=== PATIENT | female | born 1960 | race Caucasian/White ===

== ENCOUNTER 2019-10-27 09:20 | Outpatient (CLI) | payer OTHER, SELFPAY ==
[2019-10-27 10:06] LABS: Basophils Absolute Auto 0.1 K/mm3 (0.0-0.1); Basophils Percent Auto 3.1 % (0.2-1.2); Eosinophils Absolute Auto 0.3 K/mm3 (0-0.3); Eosinophils Percent Auto 7.7 % (0-4.4); Hematocrit 42.1 % (37.0-47.0); Hemoglobin 13.6 g/dL (12.0-15.0); Immature Granulocyte Absolute 0.01 K/mm3 (0.00-0.031); Immature Granulocyte Percent A 0.2 % (0-0.5); Lymphocytes Absolute Auto 1.78 K/mm3 (0.9-3.2); Lymphocytes Percent Auto 41.8 % (18.3-44.2); Mean Corpuscular HGB Conc 32.3 g/dl (32-36); Mean Corpuscular Hemoglobin 29.4 pg (26-34); Mean Corpuscular Volume 91.1 fl (80-100); Mean Platelet Volume 10.1 fl (7.4-10.4); Monocytes Absolute Auto 0.4 K/mm3 (0.1-0.6); Monocytes Percent Auto 9.2 % (2.6-8.5); Neutrophils Absolute Auto 1.6 K/mm3 (1.3-6.7); Platelet Count Result 194 k/mm3 (150-375); Red Blood Count 4.62 M/mm3 (4.2-5.4); White Blood Count 4.3 K/mm3 (4.5-10.0)
[2019-10-27 10:25] LABS: Alanine Aminotransferase 13 U/L (4-35); Albumin Level 4.2 g/dL (3.5-5.1); Alkaline Phosphatase 59 U/L (38-126); Anion Gap 5 mmol/L (8-16); Aspartate Amino Transferase 29 U/L (14-36); Bilirubin,Total 1.1 mg/dL (0.2-1.3); Blood Urea Nitrogen 16 mg/dL (7-17); Calcium 9.1 mg/dL (8.4-10.2); Carbon Dioxide 27 mmol/L (22-30); Chloride 106 mmol/L (98-107); Cholesterol 179 mg/dL (0-200); Estimated Glomerular Filt Rate > 60; Glucose 94 mg/dL (65-105); HDL Direct 61 mg/dL; Potassium 3.9 mmol/L (3.4-5.0); Sodium 138 mmol/L (137-145); Triglycerides 49 mg/dL (<150)
[2019-10-27 10:38] LABS: LDL Cholesterol Direct 98 mg/dL
== END 2019-10-27 09:21 | disposition home or self-care (01) ==
LOC: ANHLAB 09:22
PROVIDERS: PCP Nurse Practitioner; Visit Provider Nurse Practitioner
DX: R53.83 Other fatigue (principal); E78.5 Hyperlipidemia, unspecified
CPT/HCPCS: 36415; 80053; 80061; 84443; 85025

== ENCOUNTER 2019-11-15 13:41 | Outpatient (CLI) | payer OTHER, SELFPAY ==
--- NOTE | ~2019-11-15 | MM_ITS ---
EXAMINATION: MM screening belen BI w alyssa HISTORY: Screening mammogram TECHNIQUE: Craniocaudal and mediolateral oblique 3-D tomosynthesis images were obtained and synthetic 2-D images were generated. CAD analysis was submitted and interpreted. COMPARISON: 09/16/2018, 07/01/2017 bilateral digital screening mammogram examinations BREAST PARENCHYMAL COMPOSITION: The breasts are heterogeneously dense, which may obscure small masses . FINDINGS: Stable mild fibroglandular asymmetry. There is no evidence of suspicious mass, calcificatio n, or architectural distortion to suggest malignancy in either breast. There has been no suspicious i nterval change. IMPRESSION: 1. No mammographic evidence of malignancy. 2. Recommend routine screening mammography in one year. BI-RADS Category 2: Benign finding(s). Reviewed, dictated and finalized at location A.
== END 2019-11-15 13:42 | disposition home or self-care (01) ==
LOC: ANHIMG 13:44
PROVIDERS: PCP Family Medicine; Visit Provider Obstetrics & Gynecology
DX: Z12.31 Encounter for screening mammogram for malignant neoplasm of breast (principal)
CPT/HCPCS: 77063; 77067

== ENCOUNTER 2019-11-21 09:38 | Outpatient (CLI) | payer OTHER, SELFPAY ==
--- NOTE | 2019-11-21 09:45 | EST_ITS ---
Patient Info Name: Maria Teresa Hector Age: 59 years : 1960 Gender: Female Ht: 67 in Wt: 130 lbs BSA: 1.67 m2 HR: 75 bpm BP: 139 / 76 mmHg Heart Rhythm: Sinus Rhythm Technical Quality: Good Exam Date: 11/21/2019 10:07 AM Exam Location: [facility] Pulmonary Patient Status: Outpatient Admit Date: 11/21/2019 Staff Ordering Physician: Nora Pozo NP Director Of Pharmacy: Zee Mei RDCS Attending Provider: TOBIAS ROUSSEAU DO Referring Physician: Sánchez THOMASON; Exam Type: CA stress echo Study Info Indications R07.9 - Chest pain, unspecified Treadmill exercise stress echocardiogram is performed. Summary 1. 1. Negative Eduardo exercise stress test for ischemic ST changes by ECG criteria. 2. 2. Mildly reduced functional capacity, achieving 7 METs of workload. 3. 3. Appropriate HR response to exercise. 4. 4. Appropriate HR recovery at 1 minute post exercise. 5. 5. Negative stress echocardiogram for ischemia by wall motion analysis. 6. 6. Patient informed of the above results. Stress Echo Findings Left Ventricle Appropriate increase in LV endocardial thickening with systole. Appropriate augmentation of contractility with systole. No wall motion abnormality. Left Ventricle Normal LV systolic function, no wall motion abnormality. Protocol: Eduardo Stress ECG Details Stage: REST Duration (min): 7 min : 54 sec Speed (mph): 0.0 Grade (%): 0 HR (bpm): 60 SBP (mmHg): 139 DBP (mmHg): 76 METS: --- Stage: REST Duration (min): 23 min : 43 sec Speed (mph): 0.0 Grade (%): 0 HR (bpm): 83 SBP (mmHg): 139 DBP (mmHg): 76 METS: --- Stage: STAGE 1 Duration (min): 1 min : 0 sec Speed (mph): 1.7 Grade (%): 10 HR (bpm): 90 SBP (mmHg): 139 DBP (mmHg): 76 METS: --- Stage: STAGE 1 Duration (min): 2 min : 0 sec Speed (mph): 1.7 Grade (%): 10 HR (bpm): 112 SBP (mmHg): 139 DBP (mmHg): 76 METS: --- Stage: STAGE 1 Duration (min): 3 min : 0 sec Speed (mph): 1.7 Grade (%): 10 HR (bpm): 123 SBP (mmHg): 177 DBP (mmHg): 93 METS: --- Stage: STAGE 2 Duration (min): 1 min : 0 sec Speed (mph): 2.5 Grade (%): 12 HR (bpm): 140 SBP (mmHg): 177 DBP (mmHg): 93 METS: --- Stage: STAGE 2 Duration (min): 2 min : 0 sec Speed (mph): 2.5 Grade (%): 12 HR (bpm): 145 SBP (mmHg): 180 DBP (mmHg): 98 METS: --- Stage: STAGE 2 Duration (min): 3 min : 0 sec Speed (mph): 2.5 Grade (%): 12 HR (bpm): 154 SBP (mmHg): 180 DBP (mmHg): 98 METS: --- Stage: STAGE 3 Duration (min): 0 min : 14 sec Speed (mph): 0.0 Grade (%): 0 HR (bpm): 151 SBP (mmHg): 180 DBP (mmHg): 98 METS: --- Stage: RECOVERY Duration (min): 0 min : 46 sec Speed (mph): 0.0 Grade (%): 0 HR (bpm): 130 SBP (mmHg): 160 DBP (mmHg): 87 METS: --- Stage: RECOVERY Duration (min): 1 min : 46 sec Speed (mph):
== END 2019-11-21 09:39 | disposition home or self-care (01) ==
LOC: ANHCARD 09:39
PROVIDERS: PCP Nurse Practitioner; Visit Provider Nurse Practitioner
DX: R07.89 Other chest pain (principal)
CPT/HCPCS: 93351

== ENCOUNTER 2019-12-29 13:38 | Outpatient (CLI) | payer OTHER, SELFPAY ==
--- NOTE | ~2019-12-29 | DEXA_ITS ---
Bone Density Report Name: Maria Teresa Hector Age: 59 Sex: Female Ethnicity: White Date of : 1960 Indication: postmenopausal; prior fracture; Referring Provider: Nora Pozo Study: Bone densitometry was performed. Exam Date: December 29, 2019 Accession number: [id number] Bone Density: Region BMD T-score Z-score Classification AP Spine (L1-L4) 0.766 -2.6 -1.1 Osteoporosis Femoral Neck (Left) 0.613 -2.1 -0.8 Osteopenia Total Hip (Left) 0.788 -1.3 -0.2 Osteopenia Total Hip Bilateral Avg 0.792 -1.3 -0.2 Osteopenia Femoral Neck (Right) 0.619 -2.1 -0.7 Osteopenia Total Hip (Right) 0.794 -1.2 -0.2 Osteopenia World Health Organization criteria for BMD impression classify patients as: Normal (T-score at or above -1.0), Osteopenia (T-score between -1.0 and -2.5), or Osteoporosis (T-score at or below -2.5). 10-year Fracture Risk: FRAX not reported because: Some T-score for Spine Total or Hip Total or Femoral Neck at or below -2.5 Clinical Information Provided by Patient: Has had a low trauma fracture Has used the following medications: HRT (i.e. estrogen/hormone therapy), Vitamin D Patient maximum height was 67 Menopause Age: 44 Drinks caffeinated beverages Onset of menses at age 15 Number of children 3 Impression: The patient has established osteoporosis, based on the Total Spine T-score and the existence of a prior fracture. The patient has risk factors, including: previous fracture. Discussion: HIGH RISK OF FRACTURE. BONE DENSITY IS UNDESIRABLY LOW AT ONE OR MORE SKELETAL SITES, CONSISTENT WITH POSTMENOPAUSAL OSTEOPOROSIS. This patient's lowest T-score, in a patient who has previously fractured, meets the World Health Organization's (WHO) criteria for severe osteoporosis. In untreated patients, the risk of osteoporotic fracture increases approximately two-fold for each 1.0 SD decrease in T-score. Low bone density is not the only risk factor for fracture; also consider factors such as patient's age, frailty or poor health, risk of falling, risk of injury, previous osteoporotic fracture, family history of osteoporosis, cigarette smoking, low body weight, etc. Not everyone with low bone mineral density has osteoporosis; osteomalacia and other metabolic bone disorders should also be considered. Patients who have osteoporosis should be evaluated for specific diseases and conditions (secondary causes) that may cause or contribute to bone loss. The [place] [employer] Endocrinologists (AACE) and National Osteoporosis Foundation (NOF) recommend pharmacologic intervention for all postmenopausal women whose T-score is in this range. The patient should follow a healthful lifestyle (good nutrition with adequate calcium and vitamin D, and appropriate weight-bearing exercise). Follow-Up: Consider a repeat BMD and Vertebral Fr
== END 2019-12-29 13:39 | disposition home or self-care (01) ==
LOC: ANHIMG 13:40
PROVIDERS: PCP Family Medicine; Visit Provider Nurse Practitioner
DX: Z78.0 Asymptomatic menopausal state (principal); M81.0 Age-related osteoporosis without current pathological fracture; M85.89 Other specified disorders of bone density and structure, multiple sites
CPT/HCPCS: 77080

== ENCOUNTER 2020-01-28 01:16 | Outpatient (CLI) | payer OTHER, SELFPAY ==
[2020-01-28 18:31] LABS: SARS-CoV-2 RNA PCR Negative
== END 2020-01-28 01:17 | disposition home or self-care (01) ==
LOC: ANHCOVIDDT 01:16
PROVIDERS: PCP Family Medicine; Visit Provider Internal Medicine Gastroenterology
DX: Z01.812 Encounter for preprocedural laboratory examination (principal); Z20.828 Contact with and (suspected) exposure to other viral communicable diseases
CPT/HCPCS: 87635; C9803; U0003

== ENCOUNTER 2020-01-31 00:57 | Day surgery (SDC) | payer OTHER, SELFPAY ==
[2020-01-24 10:24] VITALS: BMI 20.3
[2020-01-31 11:10] VITALS: BP 134/82; PULSE 93; RESP 20; TEMP 36.6; O2SAT 98; BMI 20.2
[2020-01-31] MEDS: LACTATED RINGERS 1,000 ML 150 ML IV CONT (11:21)
--- NOTE | 2020-01-31 11:32 | WPDANESEPPF ---
Anes - Initial Pre Proc Eval Procedure: Operation Date: 01/31/20 12:30 Proposed Procedures p Screening Colonoscopy - Sabino Hughes MD Date/Time: 01/31/20 11:32 Surgeon: Sabino Hughes MD Pre Op Diagnosis: Neoplasm Screening Patient Data Age: 59 Gender: F Height: 5 ft 7 in Weight: 58.6 kg Last Vital Signs Temp 97.9 F 01/31/20 11:10 Pulse 93 01/31/20 11:10 Resp 20 01/31/20 11:10 BP 134/82 01/31/20 11:10 Pulse Ox 98 01/31/20 11:10 Allergies Allergy/AdvReac Type Severity Reaction Status Date / Time Penicillins Allergy Unknown Hives Verified 01/31/20 11:07 Home Medications Medication Instructions Recorded Confirmed Type alprazolam 1 mg tablet 1 mg PO DAILY 01/03/19 01/24/20 History estradiol-norethindrone acet 1 1 tablet PO DAILY 01/03/19 01/24/20 History mg-0.5 mg tablet simvastatin 20 mg tablet 20 mg PO DAILY #90 tablet 01/03/19 01/24/20 Rx peg 3350 240 gram-electrolytes 240 ml PO Q10M #4000 ml 12/30/19 Rx 22.72 gram-6.72 g-5.84 g powdr for soln alendronate 70 mg tablet 70 mg PO WEEKLY #16 tablet 01/03/20 01/24/20 Rx cholecalciferol (vitamin D3) 25 mcg PO DAILY 01/24/20 01/24/20 History [Vitamin D3] vit C-E-zinc [id number] 1 tablet PO DAILY 01/24/20 01/24/20 History [[facility]] Patient hx anesthesia problems: none Family hx anesthesia problems: none PMFSH Past Medical History Medical History (Updated 11/24/19 @ 15:17 by Nora Pozo NP) Anxiety disorder in conditions classified elsewhere (~2016) Hyperlipidemia LDL goal <100 (~2016) Unilateral primary osteoarthritis, right knee (~09/2016) Venous insufficiency (chronic) (peripheral) (~2016) Family History Family History Father Acute myocardial infarction, Onset Age: 68 Family history of type 2 diabetes mellitus Mother Patient's mother is in good health Social History Social History Smoking status: Never smoker Second hand tobacco smoke exposure: No Alcohol intake: never Substance use: never Substance use type: does not use Living arrangements: with family Spiritual care concerns: No Anes - Eval Final PreProcedure Day of Procedure 01/31/20 11:32 Patient weight: normal Heart: regular rate and rhythm Lungs: clear to auscultation Airway: Mallampati scale class II Neurological: alert and oriented Last oral intake: >/= 8 hours ASA classification: II Emergent: no Anesthetic plan: proceed Anesthesia type and monitoring: general GIVS and standard monitoring Informed Consent: The patient's anesthetic plan and its attendant risks and benefits were discussed with the patient/family/POA. Questions were solicited and answers provided to the satisfaction of the patient/family/POA.
--- NOTE | 2020-01-31 12:30 | SUR.OPER ---
CECUM REACHED AT 1229
[2020-01-31 12:42] VITALS: BP 106/60; PULSE 83; RESP 17; O2SAT 100
--- NOTE | 2020-01-31 12:43 | PM.HPGS ---
History of Present Illness History of Present Illness Consent: Risks, benefits, and alternatives have been discussed and questions answered. Patient agrees to proceed with procedure. Chief complaint: Neoplasm Screening Narrative: Maria Teresa Hector is a 59 year old female here for first colonoscopy, + cologuard Review of Systems Constitutional: Constitutional: Denies headache(s) and Denies weakness Eyes: Eyes: Denies blurry vision ENT: Reports Normal hearing present, Denies headache(s) and Denies neck pain Cardiovascular: Cardiovascular: Denies chest pain and Denies dyspnea Respiratory: Respiratory: Denies dyspnea Gastrointestinal: Gastrointestinal: Reports no additional gastrointestinal complaints Genitourinary: Genitourinary: Denies dysuria Musculoskeletal: Musculoskeletal: Denies neck pain Integumentary/Breasts: Skin/Breast: Denies dry skin Neurologic: Reports Normal hearing present, Denies headache(s) and Denies weakness Psychiatric: Psychiatric: Denies anxiety Endocrine: Endocrine: Denies change in body appearance Hematologic/Lymphatic: Hematologic/Lymphatic: Denies easy bleeding Allergic/Immunologic: Allergic/Immunologic: Denies urticaria PMFSH Past Medical History Medical History (Updated 01/31/20 @ 12:44 by Sabino Hughes MD) Anxiety disorder in conditions classified elsewhere (~2017) Hyperlipidemia LDL goal <100 (~2017) Positive colorectal cancer screening using Cologuard test Unilateral primary osteoarthritis, right knee (~09/2016) Venous insufficiency (chronic) (peripheral) (~2017) Family History Family History Father Acute myocardial infarction, Onset Age: 68 Family history of type 2 diabetes mellitus Mother Patient's mother is in good health Social History Social History Smoking status: Never smoker Second hand tobacco smoke exposure: No Alcohol intake: never Substance use: never Substance use type: does not use Living arrangements: with family Spiritual care concerns: No Meds Home Medications and Allergies Home Medications Medication Instructions Recorded Confirmed Type alprazolam 1 mg tablet 1 mg PO DAILY 01/03/19 01/24/20 History estradiol-norethindrone acet 1 1 tablet PO DAILY 01/03/19 01/24/20 History mg-0.5 mg tablet simvastatin 20 mg tablet 20 mg PO DAILY #90 tablet 01/03/19 01/24/20 Rx peg 3350 240 gram-electrolytes 240 ml PO Q10M #4000 ml 12/30/19 Rx 22.72 gram-6.72 g-5.84 g powdr for soln alendronate 70 mg tablet 70 mg PO WEEKLY #16 tablet 01/03/20 01/24/20 Rx cholecalciferol (vitamin D3) 25 mcg PO DAILY 01/24/20 01/24/20 History [Vitamin D3] vit C-E-zinc [id number] 1 tablet PO DAILY 01/24/20 01/24/20 [facility] Allergies Allergy/AdvReac Type Severity Reaction Status Date / Time Penicillins Allergy Unknown Hives Verified 01/31/20 11:07 Vital Signs Vital Signs - 24 hr 01/31/20 11:10 Temperature 97.9 F Pulse Rate 93 Respiratory Rate 20 Blood Pressure 134/82 Pulse Oximetry 98 Exam Const: General: comfortable and no acute distress HENMT: General nose exam: Normal nares present Eyes: General: appearance normal, both eyes and all related structures Neck: Neck: no JVD Resp: Auscultation: clear to auscultation bilaterally Cardio: Rate: regular rate Rhythm: regular rhythm GI: Inspection: non-distended GI Palp: Yes Soft to palpation Skin: General skin exam: normal color Neuro: General: gait normal Speech: normal speech Extrem: General: normal to inspection Psych: Mental Status: mental status grossly normal Assessment and Plan Assessment and plan (1) Positive colorectal cancer screening using Cologuard test: Code(s): R19.5 - Other fecal abnormalities Status: Acute Assessment and Plan: will proceed with colonoscopy
--- NOTE | 2020-01-31 12:50 | PM.PROC ---
Procedure Note - Detailed Date of procedure: 01/31/20 Pre-op diagnosis: Neoplasm Screening Surgeon: Sabino Hughes MD procedure: colonoscopy indication: first colonoscopy, + cologuard Informed consent was obtained with the risks, benefits, and alternatives to sedation and procedure explained, including but not limited to: infection, bleeding, aspiration, perforation, adverse medication reaction, missed diagnosis, and missed lesions. The patient verbalized understanding and signed the informed consent form to proceed with the sedation and the procedure.First colonoscopy.No contraindications were noted on the physical exam. Immediately prior to sedation for endoscopy, the patient's ASA Classification was Class II: mild systemic disease. Patient re-examined and no interval changes noted from preoperative history and physical. After the patient was rolled into the procedure room, two methods of identification were used to identify the patient and the procedure to be performed prior to the procedure.Anesthesia was administered by anesthesia service.The quality of the prep was excellent. Once the patient was comfortable a digital rectal exam was performed, and no masses were palpated. The patient was placed in the left lateral decubitus position.The instrument was inserted into the rectum and then advanced to the cecum.A retroflexion was performed in the rectum. The withdrawal time from the cecum was 7 minutes. The patient tolerated the procedure well. The patient's heart rate was normal. The oxygen saturation and skin color were normal. The patient will be recovered per established procedures and protocols upon discharge from the endoscopy suite. Findings: normal colon mucosa, no colitis, no polyps. One small diverticula in transverse colon, no inflammation. Found small non-bleeding internal hemorrhoids. Recommendations: ok to go home after recovery ok to resume meds and diet next colonoscopy in 10 years (earlier if any symptoms)
[2020-01-31 12:52] VITALS: BP 110/66; PULSE 76; RESP 18; O2SAT 100
[2020-01-31 13:02] VITALS: BP 112/76; PULSE 73; RESP 17; O2SAT 100
== END 2020-01-31 13:10 | disposition home or self-care (01) ==
PROVIDERS: PCP Family Medicine; Visit Provider Internal Medicine Gastroenterology
PROC: 0DJD8ZZ Inspection of Lower Intestinal Tract, Via Natural or Artificial Opening Endoscopic (ICD-10-PCS; CPT 45378; principal; 2020-01-31 12:30)
DX: Z12.11 Encounter for screening for malignant neoplasm of colon (principal); R19.5 Other fecal abnormalities; K57.30 Diverticulosis of large intestine without perforation or abscess without bleeding; K64.8 Other hemorrhoids; E78.5 Hyperlipidemia, unspecified; I87.2 Venous insufficiency (chronic) (peripheral); F41.1 Generalized anxiety disorder
CPT/HCPCS: 45378; J2704; J7120

== ENCOUNTER 2021-05-03 11:40 | Outpatient (CLI) | payer OTHER, SELFPAY ==
--- NOTE | ~2021-05-03 | MMUS_ITS ---
EXAMINATION: MM diagnostic belen BI w alyssa, US breast BI limited HISTORY: Palpable lumps in the upper outer quadrant of the right breast in the 6:00 location of the l eft breast TECHNIQUE: Craniocaudal, mediolateral, and mediolateral oblique 3-D tomosynthesis images of the breas ts were performed and synthetic 2-D images were generated. CAD analysis was submitted and interpreted . High resolution limited bilateral breast ultrasound was performed. COMPARISON: 11/15/2019, 09/16/2018, 07/01/2017 BREAST PARENCHYMAL COMPOSITION: The breasts are heterogeneously dense, which may obscure small masses . FINDINGS: MAMMOGRAPHIC FINDINGS: Right breast: There is subtle architectural distortion with a possible mass at the 11:00 location in the middle third of the upper-outer quadrant of the breast 3.8 cm from the nipple. Left breast: No mammographic correlate is identified for the reported palpable abnormality of concern . There has been no suspicious interval change. ULTRASOUND: Right breast: There is an oval, complex cystic and solid, not parallel mass at the 11:00 location 1 c m from the nipple with no posterior features or internal vascularity. Left breast: No sonographic correlate is identified for the reported nipple abnormalities concern in the left breast. IMPRESSION: 1. Indeterminate right breast mass. Ultrasound-guided biopsy is recommended. 2. Clinical follow-up is recommended for the reported palpable abnormality of concern in the left amy ast. BI-RADS category 4, suspicious findings. Reviewed, dictated and finalized at location A. [facility] IMPRESSION: 1. Indeterminate right breast mass. Ultrasound-guided biopsy is recommended. 2. Clinical follow-up is recommended for the reported palpable abnormality of c oncern in the left breast. BI-RADS category 4, suspicious findings.
== END 2021-05-03 11:41 | disposition home or self-care (01) ==
LOC: ANHIMG 11:41
PROVIDERS: PCP Family Medicine; Visit Provider Obstetrics & Gynecology
DX: R92.8 Other abnormal and inconclusive findings on diagnostic imaging of breast (principal)
CPT/HCPCS: 76642; 77062; 77066; G0279

== ENCOUNTER 2022-05-12 07:52 | Outpatient (CLI) | payer OTHER, SELFPAY ==
--- NOTE | ~2022-05-12 | DEXA_ITS ---
Bone Density Report Name: TILA PRINCE Age: 61 Sex: Female Ethnicity: White Date of : 1960 Indication: postmenopausal osteoporosis; monitoring treatment; height loss; Referring Provider: EUNICE TREVIÑO Study: Bone densitometry was performed. Exam Date: May 12, 2022 Accession number: [id number] Bone Density: Region BMD T-score Z-score Classification AP Spine(L1-L4) 0.878 -1.5 0.1 Osteopenia Femoral Neck (Left) 0.682 -1.5 -0.1 Osteopenia Total Hip (Left) 0.778 -1.3 -0.2 Osteopenia Femoral Neck (Right) 0.664 -1.7 -0.2 Osteopenia Total Hip (Right) 0.811 -1.1 0.1 Osteopenia Total Hip Mean 0.795 -1.2 -0.1 Osteopenia World Health Organization criteria for BMD impression classify patients as: Normal (T-score at or above -1.0), Osteopenia (T-score between -1.0 and -2.5), or Osteoporosis (T-score at or below -2.5). 10-year Fracture Risk: FRAX not reported because: Treated for osteoporosis Previous Exams: Region Exam Age BMD T-score BMD Change BMD Change Date g/cm2 vs Baseline vs Previous AP Spine (L1-L4) 05/12/2022 61 0.878 -1.5 0.112 (14.6%)# 0.112 (14.6%)# 12/29/2019 59 0.766 -2.6 Total Hip(Left) 05/12/2022 61 0.778 -1.3 -0.010 (-1.3%) -0.010 (-1.3%) 12/29/2019 59 0.788 -1.3 Total Hip(Right) 05/12/2022 61 0.811 -1.1 0.017 (2.2%)# 0.017 (2.2%)# 12/29/2019 59 0.794 -1.2 *Denotes significance at 95% confidence level, LSC for AP Spine = 0.022 g/cm2, LSC for Total Hip = 0.027 g/cm2 # Denotes dissimilar scan types or analysis methods Clinical Information Provided by Patient: Is being treated for osteoporosis Has used the following medications: Fosamax (i.e. alendronate), Vitamin D Patient maximum height was 67 Menopause Age: 44 Drinks caffeinated beverages Onset of menses at age 15 Number of children 3 Impression: The patient has low bone mass, based on the Right Femoral Neck T-score. No significant bone loss was observed. Discussion: PATIENT UNDER TREATMENT WITH NO SIGNIFICANT BMD LOSS SINCE LAST EXAM. In an untreated patient, BMD typically declines with age. A lack of decline or gain is usually a sign that treatment is efficacious and fracture risk is reduced. It is important to ask patients whether they are taking their medications and to encourage continued and appropriate compliance with their osteoporosis therapies to reduce fracture risk. It is also important to review their risk factors and encourage
== END 2022-05-12 07:53 | disposition home or self-care (01) ==
LOC: ANHIMG 07:52
PROVIDERS: PCP Family Medicine; Visit Provider Nurse Practitioner Family
DX: Z78.0 Asymptomatic menopausal state (principal); M85.89 Other specified disorders of bone density and structure, multiple sites
CPT/HCPCS: 77080